=== PATIENT | male | born 1965 | race Caucasian/White ===

== ENCOUNTER 2024-04-06 14:18 | Emergency (ER) | payer OTHER ==
[~2024-04-06] VITALS: Ht 172.7 cm; Wt 72.7 kg
[~2024-04-06 14:18] MED LIST: ASPI-1450 PO; ATEN-73 PO; DOXA2TAB86 PO; GABA-1181 PO; LOSA1TAB37 PO; METF-81 PO; OMEP20CA4 PO; SIMV-261 PO; TOPI100T37 PO; TRAM100T25 PO; lantus; novolog
[2024-04-06 14:24] VITALS: BP 153/104; PULSE 114; RESP 16; TEMP 98
[2024-04-06] MEDS ORDERED: INSNOV SQ (15:44)
[2024-04-06] MEDS: KETOROLAC TROMETHAMINE 30 MG/ML VIAL IM ONE (15:55)
[2024-04-06] MEDS: TraMADol HCL 50 MG TABLET PO ONE (15:55)
[2024-04-06] MEDS ORDERED: CYCL-448 PO (17:21)
== END 2024-04-06 17:48 | disposition home or self-care (01) ==
LOC: EMS 14:20
DX: M46.1 Sacroiliitis, not elsewhere classified (principal); M54.50 Low back pain, unspecified; E11.9 Type 2 diabetes mellitus without complications; I10 Essential (primary) hypertension
CPT/HCPCS: 99284; 72100; 73502; 82962; 96372; J1885